=== PATIENT | female | born 1990 | race Caucasian/White ===

== ENCOUNTER 2020-01-31 07:29 | Observation (INO) | payer OTHER, SELFPAY ==
[2020-01-31] VITALS (24 sets, daily range): BP systolic 98–130; BP diastolic 61–90; PULSE 103–148; RESP 16–22; TEMP 36.3–37.3; O2SAT 95–100; BMI 31.1
--- NOTE | 2020-01-31 07:41 | W.ED.FEMALGU ---
HPI - Female Genitourinary General: Chief complaint: Urogenital-Female Stated complaint: ABD pain/Kidney Stone Related Time Seen by Provider: 01/31/20 07:36 History of Present Illness: HPI Narrative: Patient is a 29-year-old female comes to the ED with abdominal pain. History of tubal ligation, but denies any other surgeries in the abdomen and says she still has her appendix. pain started 2 days ago on Tuesday. Pain currently is a 10 out of 10 and it is located on both right and left lower abdomen. Endorses nausea but has not had any episodes of emesis. She also says she has decreased urine output and dysuria. Denies fever, chills, chest pain, shortness of breath, bowel symptoms. Associated symptoms: Reports abdominal pain and nausea; Deny headache(s) Review of Systems Const: Denies: fever(s), chills or fatigue Eyes: Denies: change in vision or eye discomfort ENMT: Denies: throat pain, odynophagia, nasal discharge or nasal congestion Card: Denies: chest pain, palpitations, edema, swelling of feet/ankles, dyspnea on exertion or orthopnea Resp: Denies: dyspnea, productive cough or non-productive cough GI: Reports: abdominal pain and nausea; Denies: vomiting, diarrhea, constipation or hematochezia : Reports: dysuria and oliguria; Denies: flank pain or hematuria Musc: Denies: neck pain, back pain or extremity swelling Skin/Breast: Denies: rash or new lesions Neuro: Denies: headache(s), numbness in extremities or weakness in extremities Physical Exam Const: COMMON NORMALS: patient oriented x3 and alert GENERAL APPEARANCE: cooperative and in distress (Patient appears uncomfortable and in pain.) HENMT: COMMON NORMALS: normocephalic HEAD & SCALP: normocephalic MOUTH: Normal oral and palatal mucosa present THROAT: posterior oropharynx normal and uvula midline Neck/C-Spine: COMMON NORMALS: supple GENERAL: Yes normal visual inspection Resp: COMMON NORMALS: normal respiratory effort, No retractions, No use of accessory muscles and clear to auscultation bilaterally AUSCULTATION: clear to auscultation bilaterally Cardio: COMMON NORMALS: regular rhythm, S1 normal heart sound present, S2 normal heart sound present, No gallops present (Cardio), No clicks present (Cardio), No murmurs present (Cardio) and Peripheral pulses 2+ throughout RATE: tachycardic (120-130 bpm range) RHYTHM: regular rhythm HEART SOUNDS: S1 normal heart sound present and S2 normal heart sound present PERIPHERAL PULSES: Peripheral pulses 2+ throughout GI: COMMON NORMALS: Normal to inspection, nondistended, normoactive bowel sounds present, Soft to palpation and no masses PALPATION: Yes Soft to palpation and Yes Tenderness to palpation present (GI) (Patient moderate tenderness in both right and left lower quadrants. [place]) Details: LLQ and RLQ (Positive McBurney's point with some peritoneal signs as well.) : COMMON NORMALS: Yes no CVA tenderness BLADDER/KIDNEY EXAM: Yes no CVA tenderness Back/Pelvis: COMMON NORMALS: no CVA tenderness Extremity: COMMON NORMALS: normal to inspection and no pedal edema Neuro: COMMON NORMALS: patient oriented x3 and moves all extremities SENSORIUM/ORIENTATION: Yes alert Skin: GENERAL SKIN EXAM: dry skin Course Reevaluation(s): Reevaluation #1: Patient says her pain has improved only with the 4 mg of morphine. She was given another 4 mg and had minimal improvement in pain as well. Patient was told about CT findings of appendicitis. She states that the last time she ate something was around 6 PM last night. Time: 10:01 Consultations: Consultation #1: Dr. Cadet-I told him about patient case and CT findings. He told me to have patient admitted to the floor instead of going straight to the OR. Vital Signs: Vital signs: Vital Signs Temperature 98.0 F 01/31/20 08:27 Pulse Rate 133 H 01/31/20 10:00 Respiratory Rate 17 01/31/20 13:05 Blood Pressure 116/85 01/31/20 13:05 Pulse Oximetry 97 01/31/20 13:05 MDM - Female MDM Narrative: Medical decision making narrative: Patient is a 29-year-old female comes to the ED with abdominal pain. She has moderate tenderness in the right lower quadrant positive McBurney sign with some peritoneal signs. White blood cell count 11.3. CT of the abdomen shows appendicitis with possible rupture. I contacted Dr. Cadet about patient case and findings and he wanted her admitted and will evaluate her up in the hospital floor for surgery today. I told Dr. Nia about patient and he will be placing the admitting orders. Patient was given Zosyn while here in the ED. Lab Data: Attestation: I reviewed the patient's lab results. Labs: Lab Results 01/31/20 01/31/20 01/31/20 Range/Units 08:10 08:10 08:10 WBC 11.3 H (4.0-10.0) 10^3/ uL RBC 4.75 (4.1-5.3) 10^6/u L Hgb 13.5 (11.5-15.3) g/dL Hct 41.0 (37.0-47.0) % MCV 86.3 (81-99) fL MCH 28.4 (28.0-34.0) pg MCHC 32.9 (30.0-36.0) g/dL RDW 12.5 (12.1-15.1) % Plt Count 193 (130-400) 10^3/c mm MPV 10.7 H (7.4-10.4) fL Neut % (Auto) 91.7 % Lymph % (Auto) 4.3 % [place] % (Auto) 3.4 % Eos % (Auto) 0.0 % Baso % (Auto) 0.3 % Neut # (Auto) 10.41 H (1.8-7.7) 10^3/u L Lymph # (Auto) 0.5 L (0.8-4.8) 10^3/u L [place] # (Auto) 0.4 (0.2-0.9) 10^3/u L Eos # (Auto) 0.0 (0.0-0.8) 10^3/u L Baso # (Auto) 0.0 (0.0-0.1) 10^3/u L Nucleated RBC % (a uto) 0 % Nucleated RBCs # 0.0 /100WBC Sodium 135 L (136-145) mmol/L Potassium 3.5 (3.5-5.1) mmol/L Chloride 99 (98-107) mmol/L Carbon Dioxide 20 L (22-29) mmol/L Anion Gap 19.5 H (5-19) BUN 12 (6-20) mg/dL Creatinine 0.6 (0.5-0.9) mg/dL GFR Calculation 119.9 (90-130) mL/min Glucose 121 H (65-115) mg/dL Calculated Osmolal ity 281 L (285-295) mOsm/k g Calcium 9.4 (8.5-10.5) mg/dL Total Bilirubin 0.6 (0.15-1.2) mg/dL AST 24 (0-32) U/L ALT 34 H (0-33) U/L Alkaline Phosphata se 93 (35-105) IU/L Total Protein 7.4 (6.6-8.7) g/dL Albumin 4.2 (3.5-5.2) g/dL Globulin 3.2 (1.3-4.6) g/dL Lipase 8 L (13-60) U/L HCG, Qual Negative (Negative) Urine Color (Yellow) Urine Appearance (CLEAR) Urine pH (5-7) Ur Specific [place] (1.005-1.030) Urine Protein (Negative) Urine Glucose (UA) (Normal) Urine Ketones (Negative) Urine Blood (Negative) Urine Nitrate (Negative) Urine Bilirubin (Negative) Urine Urobilinogen (Negative) mg/dL Ur Leukocyte [place] a[place] (Negative) Urine RBC (0-2) /hpf Urine WBC (0-5) /hpf Ur Squamous Epith Cells (0-5) /hpf Amorphous [place] Urine Bacteria (NONE) /hpf Urine Mucus /hpf 01/30/ Range/Units 08:10 WBC (4.0-10.0) 10^3/ uL RBC (4.1-5.3) 10^6/u L Hgb (11.5-15.3) g/dL Hct (37.0-47.0) % MCV (81-99) fL MCH (28.0-34.0) pg MCHC (30.0-36.0) g/dL RDW (12.1-15.1) % Plt Count (130-400) 10^3/c mm MPV (7.4-10.4) fL Neut % (Auto) % Lymph % (Auto) % [place] % (Auto) % Eos % (Auto) % Baso % (Auto) % Neut # (Auto) (1.8-7.7) 10^3/u L Lymph # (Auto) (0.8-4.8) 10^3/u L [place] # (Auto) (0.2-0.9) 10^3/u L Eos # (Auto) (0.0-0.8) 10^3/u L Baso # (Auto) (0.0-0.1) 10^3/u L Nucleated RBC % (a uto) % Nucleated RBCs # /100WBC Sodium (136-145) mmol/L Potassium (3.5-5.1) mmol/L Chloride (98-107) mmol/L Carbon Dioxide (22-29) mmol/L Anion Gap (5-19) BUN (6-20) mg/dL Creatinine (0.5-0.9) mg/dL GFR Calculation (90-130) mL/min Glucose (65-115) mg/dL Calculated Osmolal ity (285-295) mOsm/k g Calcium (8.5-10.5) mg/dL Total Bilirubin (0.15-1.2) mg/dL AST (0-32) U/L ALT (0-33) U/L Alkaline Phosphata se (35-105) IU/L Total Protein (6.6-8.7) g/dL Albumin (3.5-5.2) g/dL Globulin (1.3-4.6) g/dL Lipase (13-60) U/L HCG, Qual (Negative) Urine Color [place] (Yellow) Urine Appearance Sl hazy (CLEAR) Urine pH 5.0 (5-7) Ur Specific Gravit y 1.025 (1.005-1.030) Urine Protein 3+ H (Negative) Urine Glucose (UA) Norm (Normal) Urine Ketones 2+ H (Negative) Urine Blood Neg (Negative) Urine Nitrate Positive H (Negative) Urine Bilirubin 2+ H (Negative) Urine Urobilinogen 8 H (Negative) mg/dL Ur Leukocyte [place] a[place] Negative (Negative) Urine RBC 0-4 H (0-2) /hpf Urine WBC None (0-5) /hpf Ur Squamous Epith Cells 10-15 H (0-5) /hpf Amorphous Sediment Not Reportable Urine Bacteria 1+ H (NONE) /hpf Urine Mucus Trace /hpf Imaging Data: CT Abd/Pel: Attestation: I personally reviewed and interpreted this imaging study as follows: Radiologist's impression: [id number] [address] [address] Scan Report Signed Patient: Rani Millan Unit #: [id number] : 1990 Age/Sex: 29 / F ADM Date: 01/31/20 Loc: ER Room/Bed: Attending Dr: Ordering Provider/Ordering MD: Osorio Valentino Date of Service: 01/31/20 Procedure(s): CT abdomen pelvis w con* [id number] Accession Number(s): [id number] Report Number: [id number] WS: [id number] CT ABDOMEN AND PELVIS WITH CONTRAST HISTORY: abdominal pain-lower abdomen TECHNIQUE: Imaging performed of the abdomen and pelvis with IV contrast. Single phase imaging of the abdomen. Coronal and sagittal reformats are submitted. All CT scans at [facility] use at least one of these dose optimization techniques: automated exposure control; mA and/or kV adjustment per patient size (includes targeted exams where dose is matched to clinical indication); or iterative reconstruction. IV CONTRAST: Omnipaque 300; 95 mL IV. Oral contrast: No DLP: 948.4 mGy.cm COMPARISON: None available. Lower thorax: Lung bases are clear. Heart is normal size. No hiatal hernia. Liver/biliary system: Liver is normal size. 5 mm area of decreased attenuation near the RIGHT diaphragmatic surface. No bile duct dilatation. Gallbladder: Normal. No gallstones or wall thickening. No pericholecystic fluid. Pancreas: Normal. Spleen: Spleen is normal size. There are multiple scattered hypoechoic masses within the spleen. The largest measures 1.4 cm. There is very minimal peripheral enhancement within some of these nodules. Adrenal glands: Normal. Right kidney: No renal obstruction or mass. There is mild inflammation surrounding the distal ureter. Left kidney: Normal. Aorta: Normal. Lymphadenopathy: None. Free fluid: There is a small amount of free fluid in the cul-de-sac. Fluid surrounds the posterior uterus. There is also small amount of free fluid in the RIGHT abdomen along the ureter and adjacent to the cecum. GI tract: Dilated abnormal appendix measuring up to 11 mm. The appendix extends towards the midline and there is edema and a small amount of free fluid in the RIGHT lower quadrant. Mesenteric edema is noted. Abdominal wall: Unremarkable abdominal wall. No hernia. Pelvis: Small amount of free fluid in the pelvis. The uterus is midline. Bones: Unremarkable. CT/CT abdomen pelvis w con* [id number] IMPRESSION: 1. Findings of acute appendicitis with possible rupture. 2. Small amount of free fluid in the cul-de-sac with no abscess at this time. This additional mesenteric edema. 3. Multiple low-attenuation lesions within the spleen of uncertain etiology. Due to the multiplicity etiologies such as lymphoma, hemangiomas or lymphangiomas or microabscesses (correlate for bacteremia) should be considered. Dictated By: Fe Rico DO Signed By: Fe Rico DO Signed Date/Time: 01/31/2053 DD/ 6 Discharge Plan Discharge Prescriptions: No Action Tylenol Extra Strength 500 mg Tablet 1,000 mg PO PRN RF: 0 Coding Level of Care Code ED Route Service Representative for Chg Fwd Exam Comprehensive
--- NOTE | 2020-01-31 07:46 | CT_ITS ---
WS: [id number] CT ABDOMEN AND PELVIS WITH CONTRAST HISTORY: abdominal pain-lower abdomen TECHNIQUE: Imaging performed of the abdomen and pelvis with IV contrast. Single phase imaging of the abdomen. Coronal and sagittal reformats are submitted. All CT scans at [facility] use at least one of these dose optimization techniques: automated exposure control; mA and/or kV adjustment per patient size (includes targeted exams where dose is matched to clinical indication); or iterativ e reconstruction. IV CONTRAST: Omnipaque 300; 95 mL IV. Oral contrast: No DLP: 948.4 mGy.cm COMPARISON: None available. Lower thorax: Lung bases are clear. Heart is normal size. No hiatal hernia. Liver/biliary system: Liver is normal size. 5 mm area of decreased attenuation near the RIGHT diaphra gmatic surface. No bile duct dilatation. Gallbladder: Normal. No gallstones or wall thickening. No pericholecystic fluid. Pancreas: Normal. Spleen: Spleen is normal size. There are multiple scattered hypoechoic masses within the spleen. The largest measures 1.4 cm. There is very minimal peripheral enhancement within some of these nodules. Adrenal glands: Normal. Right kidney: No renal obstruction or mass. There is mild inflammation surrounding the distal ureter. Left kidney: Normal. Aorta: Normal. Lymphadenopathy: None. Free fluid: There is a small amount of free fluid in the cul-de-sac. Fluid surrounds the posterior ut erus. There is also small amount of free fluid in the RIGHT abdomen along the ureter and adjacent to the cecum. GI tract: Dilated abnormal appendix measuring up to 11 mm. The appendix extends towards the midline a nd there is edema and a small amount of free fluid in the RIGHT lower quadrant. Mesenteric edema is n oted. Abdominal wall: Unremarkable abdominal wall. No hernia. Pelvis: Small amount of free fluid in the pelvis. The uterus is midline. Bones: Unremarkable. CT/CT abdomen pelvis w con* [id number] IMPRESSION: 1. Findings of acute appendicitis with possible rupture. 2. Small amount of free fluid in the cul-de-sac with no abscess at this time. This additional mesenteric edema. 3. Multiple low-attenuation lesions within the spleen of uncertain etiology. D ue to the multiplicity etiologies such as lymphoma, hemangiomas or lymphangioma s or microabscesses (correlate for bacteremia) should be considered.
[2020-01-31] MEDS: morphine 4 mg/mL SDV 1 mL IVP ×2 (08:20→09:55)
[2020-01-31] MEDS: ondansetron 2 mg/ML SDV 2 mL 4 MG IVP (08:21)
[2020-01-31] MEDS: sodium chloride 0.9% 1,000 ML 999 ML IV (08:22)
[2020-01-31 08:32] LABS: Basophils % 0.3 %; Hemoglobin 13.5 g/dL (11.5-15.3); Lymphocytes # 0.5 10^3/uL (0.8-4.8); Lymphocytes % 4.3 %; Mean Corpuscular HGB Conc 32.9 g/dL (30.0-36.0); Mean Corpuscular Hemoglobin 28.4 pg (28.0-34.0); Mean Corpuscular Volume 86.3 fL (81-99); Mean Platelet Volume 10.7 fL (7.4-10.4); Monocytes # 0.4 10^3/uL (0.2-0.9); Monocytes % 3.4 %; Neutrophils # 10.41 10^3/uL (1.8-7.7); Neutrophils % 91.7 %; Nucleated Red Blood Cells % 0 %; Platelet Count 193 10^3/cmm (130-400); Red Blood Count 4.75 10^6/uL (4.1-5.3); Red Cell Distribution Width 12.5 % (12.1-15.1); White Blood Count 11.3 10^3/uL (4.0-10.0)
[2020-01-31 08:57] LABS: Alanine Aminotransferase 34 U/L (0-33); Albumin Level 4.2 g/dL (3.5-5.2); Alkaline Phosphatase 93 IU/L (35-105); Anion Gap 19.5 (5-19); Aspartate Amino Transferase 24 U/L (0-32); Blood Urea Nitrogen 12 mg/dL (6-20); Calcium 9.4 mg/dL (8.5-10.5); Carbon Dioxide 20 mmol/L (22-29); Chloride 99 mmol/L (98-107); Globulin 3.2 g/dL (1.3-4.6); Glomerular Filtration Rate 119.9 mL/min (90-130); Glucose 121 mg/dL (65-115); Lipase 8 U/L (13-60); Osmolality Calculated 281 mOsm/kg (285-295); Potassium 3.5 mmol/L (3.5-5.1); Sodium 135 mmol/L (136-145); Total Bilirubin 0.6 mg/dL (0.15-1.2); Total Protein 7.4 g/dL (6.6-8.7)
[2020-01-31 09:01] LABS: Bilirubin Urine 2+ (Negative); Blood Urine Neg (Negative); Glucose Urine UA Norm (Normal); HCG, Serum Qual Negative (Negative); Ketones Urine 2+ (Negative); Leukocyte Esterase Urine Negative (Negative); Nitrate Urine Positive (Negative); Protein Urine 3+ (Negative); Specific Gravity, Urine 1.025 (1.005-1.030); Urine Appearance SL Hazy (CLEAR); Urine Color Orange (Yellow); Urobilinogen Urine 8 mg/dL (Negative)
[2020-01-31 09:03] LABS: Add Urine Culture? No; Bacteria Urine 1+ /hpf; Mucus Urine TRACE /hpf; RBC Urine 0-4 /hpf (0-2)
[2020-01-31] MEDS: iohexol 300 mg/mL 100 mL Btl IV (09:28)
[2020-01-31] MEDS: piperacillin-tazobactam 3.375 GM in sodium chloride 0.9% (plus) 50 ML IV ×2 (10:44→22:08)
[2020-01-31] MEDS: HYDROmorphone 1 mg/mL INJ 1 mL IVP (12:11)
--- NOTE | 2020-01-31 13:10 | P.ANESASSM_ITS ---
Pre-Anesthetic Assessment Pre-Anesthetic Assessment: Height/Weight: Height 1.57 m Weight 77.111 kg Temp Pulse Resp BP Pulse Ox 98.0 F 133 H 17 116/85 97 01/31/20 08:27 01/31/20 10:00 01/31/20 13:05 01/31/20 13:05 01/31/20 13:05 Preop Diagnosis: appendicitis Proposed Procedure: Operation Date: 01/31/20 15:10 Proposed Procedures p Laparoscopic Appendectomy(Not Applicable) - Rodney Cadet MD Familial anesthetic complications: none Was Beta Jordon taken within 24 hours: N/A Last intake: NPO > 8 hrs Social: Social History: Tobacco and No alcohol Exam: Pre-Anes Outpt Exam: alert, oriented x 3, clear to auscultation bilaterally and regular rate & rhythm Airway: Cervical ROM: WNL MP: 2 Dentition: Full Anesthetic Plan: ASA status: 1 Anesthesia: General Risk of > 500 ml blood loss (7ml/kg in children): No Data Anesthesia CBC & Chem 7: 01/31/20 08:10 01/31/20 08:10 Other Labs: Laboratory Results - last 48 hr 01/31/20 01/31/20 01/31/20 08:10 08:10 08:10 WBC 11.3 H RBC 4.75 Hgb 13.5 Hct 41.0 MCV 86.3 MCH 28.4 MCHC 32.9 RDW 12.5 Plt Count 193 MPV 10.7 H Neut % (Auto) 91.7 Lymph % (Auto) 4.3 [place] % (Auto) 3.4 Eos % (Auto) 0.0 Baso % (Auto) 0.3 Neut # (Auto) 10.41 H Lymph # (Auto) 0.5 L [place] # (Auto) 0.4 Eos # (Auto) 0.0 Baso # (Auto) 0.0 Nucleated RBC % (auto) 0 Nucleated RBCs # 0.0 Sodium 135 L Potassium 3.5 Chloride 99 Carbon Dioxide 20 L Anion Gap 19.5 H BUN 12 Creatinine 0.6 GFR Calculation 119.9 Glucose 121 H Calculated Osmolality 281 L Calcium 9.4 Total Bilirubin 0.6 AST 24 ALT 34 H Alkaline Phosphatase 93 Total Protein 7.4 Albumin 4.2 Globulin 3.2 Lipase 8 L HCG, Qual Negative Urine Color Urine Appearance Urine pH Ur Specific [place] Urine Protein Urine Glucose (UA) Urine Ketones Urine Blood Urine Nitrate Urine Bilirubin Urine Urobilinogen Ur Leukocyte Esterase Urine RBC Urine WBC Ur Squamous Epith Cells Amorphous Sediment Urine Bacteria Urine Mucus 01/31/20 08:10 WBC RBC Hgb Hct MCV MCH MCHC RDW Plt Count MPV Neut % (Auto) Lymph % (Auto) [place] % (Auto) Eos % (Auto) Baso % (Auto) Neut # (Auto) Lymph # (Auto) [place] # (Auto) Eos # (Auto) Baso # (Auto) Nucleated RBC % (auto) Nucleated RBCs # Sodium Potassium Chloride Carbon Dioxide Anion Gap BUN Creatinine GFR Calculation Glucose Calculated Osmolality Calcium Total Bilirubin AST ALT Alkaline Phosphatase Total Protein Albumin Globulin Lipase HCG, Qual Urine Color [place] Urine Appearance Sl hazy Urine pH 5.0 Ur Specific [place] 1.025 Urine Protein 3+ H Urine Glucose (UA) Norm Urine Ketones 2+ H Urine Blood Neg Urine Nitrate Positive H Urine Bilirubin 2+ H Urine Urobilinogen 8 H Ur Leukocyte Esterase Negative Urine RBC 0-4 H Urine WBC None Ur Squamous Epith Cells 10-15 H Amorphous Sediment Not Reportable Urine Bacteria 1+ H Urine Mucus Trace Micro: Microbiology 01/31/20 08:10 Blood Culture - Preliminary Blood SPECIMEN COLLECTED Cardiac Studies: No Data to Display
--- NOTE | 2020-01-31 14:09 | PM.HP ---
Providers/Chief Complaint Admitting Physician: General Surgery Rodney Cadet MD Primary Care Provider: CASSIEMahesh DONATO Chief Complaint: ABD pain/Kidney Stone Related History of Present Illness Rani Millan is a 29 year old female who started developing in upper abdominal pain, particularly on the left side 2 days ago. She initially thought she may be dealing with a kidney stone, although she has no history of the same. The pain has slowly moved down her abdomen and into the right lower quadrant. This has been associated with more intense pain, nausea without vomiting, no change in bowel habits, perhaps a few chills and some anorexia. She came to the emergency room today and a CAT scan showed changes consistent with acute appendicitis with free fluid in the pelvis, possibly consistent with early rupture. Review of Systems General: Reports: 10 or more systems reviewed and unremarkable except in HPI and below Const: Reports: chills Resp: Denies: dyspnea GI: Reports: abdominal pain and nausea; Denies: vomiting or change in bowel habits : Reports: difficulty voiding (Yesterday, but better today) Medications/Allergies Home Medications Medication Instructions Recorded Confirmed Last Taken Type acetaminophen [Tylenol Extra 1,000 mg PO PRN 01/31/20 01/31/20 01/30/20 History Strength] Allergies Allergy/AdvReac Type Severity Reaction Status Date / Time No Known Allergies Allergy Verified 01/31/20 09:19 PFSH Acute PFSH: Medical History No significant past medical history Surgical History History of oral surgery [place] teeth History of tubal ligation Social History (Updated 01/31/20 @ 14:16 by Rodney Cadet MD) Smoking and tobacco status: current every day smoker cigarettes Packs smoked per day: 0.25 Years cigarettes smoked: 10 Alcohol intake: current Alcohol use comment: Occasional Vitals/I&O/Wt Last Vital Signs Temp 98.0 F 01/31/20 08:27 Pulse 133 H 01/31/20 10:00 Resp 17 01/31/20 13:05 BP 116/85 01/31/20 13:05 Pulse Ox 97 01/31/20 13:05 Weight last 48 hrs Weight 170 lb Physical Exam Narrative: EXAM NARRATIVE: The patient was encountered in the emergency department. She does not appear to be in any acute distress. The pupils are equal. No carotid bruits are heard. The lungs are clear anteriorly. The heart is regular but is slightly tachycardic. The abdomen reveals hypoactive bowel sounds but is soft. Rovsing's sign is positive. The patient has her maximum point of tenderness over McBurney's point in the right lower quadrant or slightly medial to this. No obvious masses are palpated. The extremities reveal no edema. Neurologically the patient appears to be grossly intact Data : 01/31/20 08:10 01/31/20 08:10 Micro: Microbiology 01/31/20 08:10 Blood Culture - Preliminary Blood SPECIMEN COLLECTED CT Abd/Pel: Radiologist's impression: CT abdomen/pelvis 01/31/2020 IMPRESSION: 1. Findings of acute appendicitis with possible rupture. 2. Small amount of free fluid in the cul-de-sac with no abscess at this time. This additional mesenteric edema. 3. Multiple low-attenuation lesions within the spleen of uncertain etiology. Due to the multiplicity etiologies such as lymphoma, hemangiomas or lymphangiomas or microabscesses (correlate for bacteremia) should be considered. A&P Assessment and plan (1) Acute appendicitis: I agree with the assessment on the CT regarding acute appendicitis. The patient does have a mild to moderate amount of free fluid in the pelvis which may or may not be secondary to rupture; this may just be secondary to inflammatory change. I discussed appendicitis with the patient in some detail. Both conservative and surgical methods of management were discussed. Risks of surgery including bleeding, infection, internal organ injury, etc. were all gone over. The patient seems to understand and would like to proceed with an appendectomy today. The patient has been n.p.o. since last night. We will make arrangements for a laparoscopic or possibly open appendectomy today. Status: Acute Attestations Medical Necessity Statement*: Based on my medical assessment, presenting symptoms and consideration of the scope of surgical therapy, I expect this patient will require treatment in the hospital for a period of time spanning less than 2 midnights, and is therefore being placed in observation status. Coding Level of Care Code Acute Mule Packer for [facility] Diagnoses Acute appendicitis K35.80
[2020-01-31] MEDS: sodium chloride 0.9% 1,000 ML 30 ML IV (16:09)
[2020-01-31] MEDS: metroNIDAZOLE IV 500 MG/100 ML PREMIX 100 MG IV (16:18)
--- NOTE | 2020-01-31 17:50 | PC.NURSE ---
Received patient from surgery via stretcher, patient able to transfer by herself to bed, denies pain or nausea, X3 incisions to anterior abdomen, dressings clean dry and intact, SCD's and TEDs to lower extremities bilaterally, patient oriented but drowsy, vitals stable as documented.
--- NOTE | 2020-01-31 18:10 | SUR.PHASEI ---
[id number] PT TO FLOOR AWAKE ALERT MOVES SELF TO BED WITHOUT ASSIST, ALERT TALKATIVE ABD SOFT HANDOFF AT BEDSIDE
--- NOTE | 2020-01-31 18:24 | P.OP_ITS ---
Operative Report Date of procedure: January 31, 2020 Pre-op Diagnosis: Acute appendicitis with possible perforation. Post-op Diagnosis: Perforated appendicitis. Procedure Done: Laparoscopic appendectomy. Specimens removed/disposition: Appendix. Surgeon: Rodney Cadet Anesthesia: General Estimated blood loss (mL): 10 Complications: None. Disposition: PACU Procedure: The patient was brought to the Operating Room and was placed in a supine position on the operating room table. General endotracheal anesthesia was induced. The abdomen was prepped and draped in a sterile fashion. A small vertical incision was carried out in the superior aspect of the umbilicus. Blunt dissection was carried out down to the fascia, which was grasped with a Akshat clamp. A stay suture of 0 Vicryl was placed on either side of the midline and the midline fascia was incised. The underlying peritoneum was opened bluntly and the Aubrey port was placed directly into the peritoneal cavity and was held in place with the inflatable balloon. The peritoneal cavity was insufflated with carbon dioxide. The laparoscope was used to inspect the peritoneal cavity. The patient had some cloudy fluid along the right gutter and into the pelvis. There was evidence of early inflammatory peel on the loops of small bowel in the right lower quadrant in the pelvis. Two 5-millimeter ports were placed in the left lower quadrant under direct vision. The patient was tilted in a Trendelenburg position and slightly to the left side. A laparoscopic [place] was used to elevate the cecum and the appendix was eventually identified in the middle of an early phlegmon involving the distal small bowel loops. The bowel loops were carefully but easily freed from each other bluntly and any of the light inflammatory peel that was loosened in the process was suctioned out. The appendix was further freed using blunt dissection and was then elevated. It could be seen that the patient had a small perforation of the appendix just beyond the base where a small fecalith was present and was suctioned out. No jamison abscess was ever seen, however. It appeared as if the small bowel loops had done a good job of containing the perforation and most of the fluid in the pelvis was more inflammatory but I am sure contained some microorganisms. The mesoappendix was divided using cautery to maintain hemostasis at the base of the appendix. The base of the appendix appeared relatively healthy and was divided using an endoscopic stapler. The appendix was removed from the peritoneal cavity after being placed in a laparoscopic bag. Given the friability of the tissue at the cecum, an Endoloop suture of 0 Vicryl was also placed on the appendiceal base right at the junction of the cecum. The right lower quadrant and pelvis were extensively irrigated with multiple liters of sterile saline until the return was clear. Some irrigation was even carried out in the upper quadrants, but no cloudy fluid was discovered there. The staple line on the appendiceal stump and Endoloop suture at the cecum were once again identified and appeared to be in good position/condition. The Aubrey port was removed from the umbilical site and the stay sutures of Vicryl were tied to each other at the umbilicus. An additional [id number] suture of 0 Vicryl was placed, closing the fascial defect so that it was airtight. A final round of irrigation was carried out in the right lower quadrant and the pelvis. No ongoing problems were seen. The remaining ports were removed from the abdominal wall as the pneumoperitoneum was evacuated. All skin incisions were closed using inverted interrupted sutures of 4-0 Vicryl. Benzoin and Steri-Strips were placed over the incisions and Band- Aids followed. The patient was taken to the Recovery Room in stable condition postoperatively.
[2020-01-31] MEDS: D5-NS 0.45% + KCL 20 mEq 20 MEQ/1,000 ML BAG 100 MEQ IV (18:28)
--- NOTE | 2020-01-31 19:04 | ANE.PACU2 ---
Inpatient post-anesthesia follow up: Airway intact: Yes Vital signs: Temperature 98.2 F Pulse Rate [Monito r] 134 Pulse Rate 110 Respiratory Rate 16 Blood Pressure [Ri ght Arm] 106/75 Blood Pressure 105/66 Pulse Oximetry 96 Oxygen Delivery Me thod Nasal Cannula Oxygen Flow Rate 2 Fraction of Inspir ed Oxygen Hydration adequate: Yes Nausea and vomiting: No Pain level: 3 Mental status: Baseline
[2020-01-31] MEDS: levalbuterol 0.63 mg/3 mL Neb INHALATION (21:10)
[2020-01-31] MEDS: ketorolac 30 mg/mL INJ 15 MG IVP (21:16)
[2020-01-31] MEDS: heparin 5,000 unit/mL INJ 1 mL 5000 UNIT SUBCUT (21:28)
[2020-02-01 00:50] VITALS: BP 93/62; PULSE 89; RESP 16; O2SAT 93
[2020-02-01] MEDS: famotidine 20 mg/2 mL INJ IVP ×2 (03:26→15:35)
[2020-02-01] MEDS: ketorolac 30 mg/mL INJ 15 MG IVP (03:27)
[2020-02-01] MEDS: D5-NS 0.45% + KCL 20 mEq 20 MEQ/1,000 ML BAG 100 MEQ IV (04:49)
[2020-02-01] MEDS: piperacillin-tazobactam 3.375 GM in sodium chloride 0.9% (plus) 50 ML IV ×2 (04:50→11:49)
[2020-02-01 05:17] LABS: Basophils % 0.1 %; Hematocrit 30.6 % (37.0-47.0); Hemoglobin 9.8 g/dL (11.5-15.3); Lymphocytes # 0.4 10^3/uL (0.8-4.8); Lymphocytes % 4.6 %; Mean Corpuscular Hemoglobin 28.2 pg (28.0-34.0); Mean Corpuscular Volume 88.2 fL (81-99); Monocytes # 0.4 10^3/uL (0.2-0.9); Monocytes % 5.3 %; Neutrophils # 6.72 10^3/uL (1.8-7.7); Neutrophils % 88.7 %; Nucleated Red Blood Cells % 0 %; Platelet Count 163 10^3/cmm (130-400); Red Blood Count 3.47 10^6/uL (4.1-5.3); Red Cell Distribution Width 12.6 % (12.1-15.1); White Blood Count 7.6 10^3/uL (4.0-10.0)
[2020-02-01 05:56] LABS: Anion Gap 11.6 (5-19); Blood Urea Nitrogen 10 mg/dL (6-20); Calcium 8.7 mg/dL (8.5-10.5); Carbon Dioxide 22 mmol/L (22-29); Chloride 107 mmol/L (98-107); Glomerular Filtration Rate 119.9 mL/min (90-130); Glucose 136 mg/dL (65-115); Osmolality Calculated 285 mOsm/kg (285-295); Potassium 3.6 mmol/L (3.5-5.1); Sodium 137 mmol/L (136-145)
--- NOTE | 2020-02-01 07:04 | PM.PN ---
Subjective Subjective: Interval history: The patient says she already feels much better today. She says she is getting up to urinate frequently; it sounds like she is now very well-hydrated. She is fairly adamant that she wants to try to get out of here at some point in time and recuperate at home. Vitals/I&O/Wt Last Vital Signs Temp 98.2 F 01/31/20 19:50 Pulse 89 02/01/20 00:50 Resp 16 02/01/20 00:50 BP 93/62 02/01/20 00:50 Pulse Ox 93 02/01/20 00:50 01/31/20 02/01/20 02/01/20 22:59 06:59 14:59 Intake Total 1360 / 2410 1050 / 2410 Output Total 120 / 520 400 / 520 Balance 1240 / 1890 650 / 1890 Weight last 48 hrs Weight 170 lb Physical Exam Narrative: EXAM NARRATIVE: Bowel sounds are hypoactive. The surgical incisions look good. Data : 02/01/20 05:05 02/01/20 05:05 Micro: Microbiology 01/31/20 08:10 Blood Culture - Preliminary Blood SPECIMEN COLLECTED A&P Assessment and plan (1) Perforated appendicitis: Status post appendectomy on 01/31/2020. The patient was found to have a perforation in the appendix with some fluid in the pelvis. She continues on broad-spectrum antibiotics. The patient's hemoglobin has drifted somewhat. While a lot of this may be delusional, I am going to discontinue her Toradol and heparin for now and continue to watch her hemoglobin. She very much wants to go home today. We discussed the benefit of her staying in the hospital for further intravenous antibiotics. Her white blood cell count is surprisingly already back to normal and she has remained afebrile. I told her that if she really wants to go home we may be clinically cutting a corner, but those 2 indicators are obviously very good signs that she is going to do well. I have talked her into waiting until just after noon when she will get her next dose of Zosyn and then her gets off work a couple hours later here in town. If nothing comes up in the interim, I will make arrangements for her to go home later today on oral antibiotics. Status: Acute Attestations Medical Necessity Statement*: The patient will be left in observation status, as she will likely be discharged later today. Coding Level of Care Code Acute Sheet Catcher for [facility] Fwd Diagnoses Perforated appendicitis K35.32
--- NOTE | 2020-02-01 07:29 | PC.NURSE ---
Dr. Cadet in to see patient, discussed plan of care to discharge home this afternoon after IV antibiotic scheduled administration. Patient in agreement, denies further questions or concerns.
[2020-02-01 08:00] VITALS: BP 111/74; PULSE 95; RESP 16; TEMP 37; O2SAT 98
[2020-02-01 08:38] VITALS: PULSE 103; RESP 16; O2SAT 98
[2020-02-01] MEDS: levalbuterol 0.63 mg/3 mL Neb INHALATION (08:38)
[2020-02-01 08:40] VITALS: PULSE 108
[2020-02-01] MEDS: HYDROcodone-acetaminophen 5-325 mg Tablet PO ×2 (09:00→15:03)
--- NOTE | 2020-02-01 09:00 | PC.NURSE ---
PRN norco given for a pain level of 5 on 0-10 pain scale, see MAR for further details.
--- NOTE | 2020-02-01 09:23 | P.DS_ITS ---
Discharge Providers Date of Admission: 01/31/20 17:15 Date of Discharge: February 01, 2020 Attending Provider at Admission: Rodney Cadet MD Attending Provider at Discharge: Rodney Cadet MD Primary Care Provider: [facility] Diagnoses at Discharge Discharge Diagnosis (1) Perforated appendicitis: Status: Acute Reason for Visit Reason for Visit: ABD pain/Kidney Stone Related Hospital Course Hospital Course This is a 29-year-old white female who developed abdominal pain 2 days before presenting to the local emergency room where a CAT scan revealed evidence of acute appendicitis with probable perforation. She was taken to the operating room for laparoscopy and was found to have a perforated appendicitis but no jamison abscess was found. All of the fluid seen on the CAT scan turned out to be cloudy fluid in the pelvis which was extensively irrigated out. By the following morning she was already feeling much better. Her white blood cell count had returned to normal and she remained afebrile. I had intended to leave her in the hospital for several days on intravenous antibiotics but she was fairly adamant about wanting to go home. We discussed possible risks. She elected to go home on oral antibiotics. She was instructed with respect to wound care, activity limitations, diet, etc. I made her aware that I will be available at any time even over the weekend if she has any concerns. Otherwise, a follow-up appointment will be made for her to see me in the office as an outpatient. Physical Exam Narrative: EXAM NARRATIVE: At the time of discharge the patient's bowel sounds remain hypoactive but her wounds all appear to be healing very well. Her tachycardia had essentially resolved and her white blood cell count was normal. Discharge Data Data Completed and Pending: Completed Studies During Hospitalization Category Date Time Status CT abdomen pelvis w con* [id number] Urge nt Cat Scan 01/31/20 07:46 Completed Pending at discharge Category Date Time Status ES surgery / GI i mages Routine Exams 01/31/20 15:53 Ordered Blood Culture Sta t Lab 01/31/20 08:10 Results Pathology: Surgic al [PTH] Routine Pth 01/31/20 17:01 Received Labs from last 24 hours 02/01/20 02/01/20 05:05 05:05 WBC 7.6 RBC 3.47 L Hgb 9.8 L Hct 30.6 L MCV 88.2 MCH 28.2 MCHC 32.0 RDW 12.6 Plt Count 163 MPV 11.0 H Neut % (Auto) 88.7 Lymph % (Auto) 4.6 [place] % (Auto) 5.3 Eos % (Auto) 0.0 Baso % (Auto) 0.1 Neut # (Auto) 6.72 Lymph # (Auto) 0.4 L [place] # (Auto) 0.4 Eos # (Auto) 0.0 Baso # (Auto) 0.0 Nucleated RBC % (a uto) 0 Nucleated RBCs # 0.0 Sodium 137 Potassium 3.6 Chloride 107 Carbon Dioxide 22 Anion Gap 11.6 BUN 10 Creatinine 0.6 GFR Calculation 119.9 Glucose 136 H Calculated Osmolal ity 285 Calcium 8.7 Vitals: Last Vital Signs Temp 98.6 F 02/01/20 08:00 Pulse 108 H 02/01/20 08:40 Resp 16 02/01/20 08:38 BP 111/74 02/01/20 08:00 Pulse Ox 98 02/01/20 08:38 Discharge Plan Discharge Patient Disposition: Home Condition: Stable Prescriptions: New hydrocodone-acetaminophen 5-325 mg tablet 1 - 2 tab PO Q5H PRN (Reason: pain) Qty: 30 RF: 0 Augmentin 875-125 mg tablet 1 tab PO BID Qty: 15 RF: 0 Discontinued acetaminophen [Tylenol Extra Strength] 500 mg Tablet 1,000 mg PO PRN RF: 0 Discharge Orders: Discharge Order (Routine); Ordered 02/01/20 Ordered By: Rodney Cadet Referrals: Rodney Cadet MD [Physician] - 02/12/20 3:00 pm () Discharge Diet: Advance as tolerated Discharge Activity: Limit activity as instructed Patient Instructions: Hydrocodone/Acetaminophen (By mouth), Am oxicillin/Clavulanate Potassium (By mouth), Laparoscopic Appendectomy (DC) Activity Restrictions/Additional Instructions: 1. Discharge to home today after 12:30 dose of Zosyn. 2. Appointment to see Dr. Cadet in 10-14 days as above. 3. Bandaids off later today, leave Steri-Strip(s) on, may shower. 4. [place] 5/325 1-2 tablets by mouth every 5 hours as needed for pain. #30, no refills. 5. Augmentin 875/125 1 tablet by mouth. twice daily until gone. Dispense #15, no refills. No lifting over 20 pounds, no repetitive bending or twisting, no strenuous pushing / pulling or other heavy activity. Ambulate regularly. May go up and down steps if needed. Discharge Attestations Time Spent in Discharge Care*: less than 30 min Quality Metrics Clinical Quality Measures During this hospital stay, did patient experience: None Coding Level of Care Code Acute Industrial Illuminating Engineer for [facility] Fwd Diagnoses Perforated appendicitis K35.32
--- NOTE | 2020-02-01 09:26 | ANE.PACU2 ---
Inpatient post-anesthesia follow up: Airway intact: Yes Vital signs: Temperature 98.6 F Pulse Rate [Monito r] 134 Pulse Rate 108 Respiratory Rate 16 Blood Pressure [Ri ght Arm] 106/75 Blood Pressure 111/74 Pulse Oximetry 98 Oxygen Delivery Me thod Room Air Oxygen Flow Rate 0 Fraction of Inspir ed Oxygen Hydration adequate: Yes Nausea and vomiting: No Pain level: 2 Mental status: Baseline
--- NOTE | 2020-02-01 11:05 | PC.CHAP ---
Pastoral Care Encounter/Spiritual Assessment Type of Contact [] Declined minister assistant visit [] Patient/Family/Request visit [] Outpatient visit [] Follow-up visit [] Physician referral [] Code/Alert [] Routine visit [] Staff referral [] Actively dying [xx] Patient sleeping [] Family support [] [] Out of room [] Palliative care [] [] Receiving care in room [] Pre-surgical visit [] Trauma [] Long length of stay [] ICU visit [xx] Other: Pt needs follow up. Relational/Emotional Strength [] Patient feels connected with others/family/visitors/staff [] Distress [] Loneliness/isolation [] Abandonment Spirituality of Patient [] Person of Rocio [] Attends Confucianist of their Rocio [] Believes in Prayer [] Reads Bible or Muslim materials [] There are Spiritual issues to be addressed Producer Assistant Interventions [] Prayer [] Active listening [] Non-anxious presence [] Spiritual/emotional support [] Crisis/trauma care [] Spiritual counseling [] Bereavement support [] Provided bereavement packet [] Provided Bible/devotional materials [] Provided toy/stuffed animal, coloring book to patient or family member [] Provided Communion [] Anointing/[place] [] Salvation [] Completed spiritual assessment [] Other: Impact on Illness or Injury [] Angry [] Fearful [] Anxious [] Often cries [] Exhaustion [] Unable to work [] Unable to attend baptist [] Unable to walk/stand [] Unable to read [] Unable to drive [] Unable to eat/drink [] Unable to sleep [] Unable to be with family [] Patient intubated [] Other: Summary Time spent with patient
[2020-02-01 14:02] VITALS: BP 110/72; PULSE 105; RESP 18; TEMP 37.5; O2SAT 96
--- NOTE | 2020-02-01 14:08 | PC.NURSE ---
Resting in bed, equal rise and fall of chest, call light in reach.
--- NOTE | 2020-02-01 15:09 | PC.NURSE ---
discharge instructions provided, verbalized understanding, denies further questions or concerns, bandaids removed per doctors orders, steri strips in place.
[2020-02-01 16:29] VITALS: BP 110/72; PULSE 105; RESP 18; TEMP 37.5; O2SAT 96
--- NOTE | 2020-02-05 14:39 | PC.RESP ---
SMOKING CESSATION INFORMATION SENT TO PATIENT.
== END 2020-02-01 16:29 | disposition home or self-care (01) ==
LOC: ER 12:45 → OR 15:11 → MEDSURG 17:16
PROVIDERS: Admitting Provider Surgery; Emergency Provider Physician Assistant; Visit Provider Surgery
PROC: 0DTJ4ZZ Resection of Appendix, Percutaneous Endoscopic Approach (ICD-10-PCS; CPT 44970; principal; 2020-01-31 15:10)
DX: K35.891 Other acute appendicitis without perforation, with gangrene (principal); F17.210 Nicotine dependence, cigarettes, uncomplicated
CPT/HCPCS: 44970; 12345; 74177; 80048; 80053; 81001; 83690; 84703; 85025; 87040; 88304; 94640; 96361; 96365; 96366; 96367; 96372; 96375; 96376; 99282; 99285; G0378; J0131; J0690; J1100; J1170; J1644; J1885; J2250; J2270; J2405; J2543; J2704; J2710; J2765; J3010; J3490; J7030; J7614; Q9967; S0030

== ENCOUNTER 2020-02-02 16:18 | Inpatient (IN) | payer OTHER, SELFPAY ==
--- NOTE | 2020-02-02 17:03 | PM.PN ---
Subjective Subjective: Interval history: INTERVAL NOTE: This is a 29-year-old white female who underwent a laparoscopic appendectomy 2 days ago for perforated appendicitis. She was discharged yesterday. I had encouraged her to stay in the hospital for more intravenous antibiotics beyond yesterday morning even though her white blood cell count was normal and she had remained afebrile overnight. She still elected to go home. She was discharged on some Augmentin and was instructed to call me if she had any problems. She apparently did well yesterday, but did not obtain the Augmentin until this morning. This morning she had some diarrhea and developed some nausea and vomiting. There was no evidence of hematemesis. During the vomiting she had apparently pulled a muscle in the right side of her back and she says it is very sore. She took her Augmentin this morning for the first time but has been unable to keep anything down since. I told her to come back to the hospital for observation/hydration, antibiotics, etc. Physical Exam Narrative: EXAM NARRATIVE: The patient has just arrived on the floor. She was encountered in the waiting area and subsequently in her hospital room. The pupils are equal. The lungs reveal a few scattered rales that cleared with inspiration. The heart is regular. The abdomen reveals very few bowel sounds. The incisions are healing very well. She has no significant tenderness in the abdomen with the exception of the upper abdomen on the right side around the costal margin where she pulled a muscle towards the back. The extremities reveal no edema. Neurologically the patient is grossly intact. A&P Assessment and plan (1) Nausea vomiting and diarrhea: The patient had a perforated appendicitis just 2 days ago. I had encouraged her to stay in the hospital for a longer course of intravenous antibiotics, but after insisting on going home, she apparently she did okay until today when she started having nausea and vomiting. She did have a loose bowel movement this morning. To make things worse, she pulled a muscle in her back while she was vomiting and that almost seems to be her biggest issue currently. She is also in tears because she does not like staying alone and because of the Covid pandemic, she cannot have constant visitors. Given the fact that she is unable to keep oral antibiotics down, however, I think it is best that she stays in the hospital for intravenous antibiotics/hydration until she improves. I will start the patient back on Zosyn. Check laboratory studies this evening. Clear liquid diet. Pain and nausea medication as needed. Status: Acute Attestations Medical Necessity Statement*: Based on my medical assessment, presenting symptoms and consideration of the scope of surgical therapy, I expect this patient will require treatment in the hospital for a period of time spanning less than 2 midnights, and is therefore being placed in observation status. Coding Level of Care Code Acute Wrapper Off for [facility] Fwd Diagnoses Nausea vomiting and diarrhea R11.2; R19.7
[2020-02-02 18:16] VITALS: BP 122/79; PULSE 123; RESP 19; TEMP 38.6; O2SAT 95
[2020-02-02] MEDS: ketorolac 30 mg/mL INJ 15 MG IVP (19:59)
[2020-02-02 20:00] VITALS: BP 124/84; PULSE 117; RESP 18; TEMP 37.4; O2SAT 94
[2020-02-02] MEDS: famotidine 20 mg/2 mL INJ IVP (20:00)
[2020-02-02] MEDS: D5-NS 0.45% + KCL 20 mEq 20 MEQ/1,000 ML BAG 125 MEQ IV (20:03)
[2020-02-02 20:06] LABS: Anion Gap 16.6 (5-19); Blood Urea Nitrogen 9 mg/dL (6-20); Calcium 9.4 mg/dL (8.5-10.5); Carbon Dioxide 24 mmol/L (22-29); Chloride 98 mmol/L (98-107); Glucose 93 mg/dL (65-115); Osmolality Calculated 280 mOsm/kg (285-295); Sodium 136 mmol/L (136-145)
[2020-02-02 20:23] LABS: Basophils % 0.4 %; Eosinophils % 0.4 %; Hematocrit 37.3 % (37.0-47.0); Lymphocytes # 0.7 10^3/uL (0.8-4.8); Lymphocytes % 8.6 %; Mean Corpuscular HGB Conc 32.2 g/dL (30.0-36.0); Mean Corpuscular Hemoglobin 28.3 pg (28.0-34.0); Mean Platelet Volume 11.2 fL (7.4-10.4); Monocytes # 0.4 10^3/uL (0.2-0.9); Monocytes % 5.8 %; Neutrophils # 6.34 10^3/uL (1.8-7.7); Neutrophils % 84.1 %; Nucleated Red Blood Cells % 0 %; Platelet Count 219 10^3/cmm (130-400); Red Blood Count 4.24 10^6/uL (4.1-5.3); White Blood Count 7.5 10^3/uL (4.0-10.0)
[2020-02-02 20:34] LABS: Potassium 2.6 mmol/L (3.5-5.1)
[2020-02-02] MEDS: piperacillin-tazobactam 3.375 GM in sodium chloride 0.9% (plus) 50 ML IV (21:51)
[2020-02-03] VITALS (7 sets, daily range): BP systolic 117–128; BP diastolic 78–84; PULSE 107–122; RESP 16–24; TEMP 37–37.6; O2SAT 92–94
[2020-02-03] MEDS: ketorolac 30 mg/mL INJ 15 MG IVP ×4 (02:35→18:14)
[2020-02-03] MEDS: D5-NS 0.45% + KCL 20 mEq 20 MEQ/1,000 ML BAG 125 MEQ IV (03:11)
[2020-02-03 05:50] LABS: Basophils % 0.2 %; Eosinophils # 0.1 10^3/uL (0.0-0.8); Eosinophils % 1.4 %; Hematocrit 30.5 % (37.0-47.0); Hemoglobin 9.8 g/dL (11.5-15.3); Lymphocytes # 0.5 10^3/uL (0.8-4.8); Lymphocytes % 8.7 %; Mean Corpuscular HGB Conc 32.1 g/dL (30.0-36.0); Mean Corpuscular Hemoglobin 28.5 pg (28.0-34.0); Mean Corpuscular Volume 88.7 fL (81-99); Mean Platelet Volume 10.7 fL (7.4-10.4); Monocytes # 0.4 10^3/uL (0.2-0.9); Neutrophils # 4.71 10^3/uL (1.8-7.7); Neutrophils % 82.4 %; Nucleated Red Blood Cells % 0 %; Platelet Count 188 10^3/cmm (130-400); Red Blood Count 3.44 10^6/uL (4.1-5.3); Red Cell Distribution Width 13.1 % (12.1-15.1); White Blood Count 5.7 10^3/uL (4.0-10.0)
[2020-02-03 06:16] LABS: Anion Gap 12.7 (5-19); Blood Urea Nitrogen 9 mg/dL (6-20); Calcium 8.6 mg/dL (8.5-10.5); Carbon Dioxide 25 mmol/L (22-29); Chloride 101 mmol/L (98-107); Glucose 113 mg/dL (65-115); Osmolality Calculated 281 mOsm/kg (285-295); Sodium 136 mmol/L (136-145)
[2020-02-03] MEDS: piperacillin-tazobactam 3.375 GM in sodium chloride 0.9% (plus) 50 ML IV ×3 (06:42→18:14)
[2020-02-03 06:44] LABS: Potassium 2.7 mmol/L (3.5-5.1)
[2020-02-03] MEDS: famotidine 20 mg/2 mL INJ IVP ×2 (06:45→18:13)
[2020-02-03] MEDS: lidocaine 1% 5 ML in potassium chloride premix 100 ML 25 ML IV (08:09)
--- NOTE | 2020-02-03 09:35 | PM.PN ---
Subjective Subjective: Interval history: The patient is feeling better today. She no longer has pain on the right side of her back, but says now she has some on the left side. It only bothers her when she is up moving around. She is passing flatus and tolerating clear liquids without nausea. She is not having any more diarrhea. Vitals/I&O/Wt Last Vital Signs Temp 98.6 F 02/03/20 07:47 Pulse 107 H 02/03/20 07:47 Resp 18 02/03/20 07:47 BP 117/81 02/03/20 07:47 Pulse Ox 93 02/03/20 07:47 02/02/20 02/03/20 02/03/20 22:59 06:59 14:59 Intake Total 120 / 1798.569 4710.667 / 1241.667 Output Total 100 / 100 Balance 120 / 0646.392 7733.667 / 1141.667 Weight last 48 hrs Weight 171 lb 9.6 oz Physical Exam Narrative: EXAM NARRATIVE: Bowel sounds are improved. The incisions still look good. Data : 02/03/20 05:06 02/03/20 05:06 A&P Assessment and plan (1) Nausea vomiting and diarrhea: The patient is doing better. Change to inpatient status. Replace potassium; her potassium was low last night, as well, but nursing did not notify me at that time. Advance diet as tolerated. Plan discharge tomorrow if the patient continues doing well. Status: Acute Attestations Medical Necessity Statement*: I am going to watch the patient one more day in the hospital. Since tonight will be her second midnight in the hospital, I will change her to inpatient status for ongoing intravenous antibiotics following perforated appendicitis. Coding Level of Care Code Acute Supervisor Contact And Service Clerks for [facility] Fwd Diagnoses Nausea vomiting and diarrhea R11.2; R19.7
[2020-02-03] MEDS: dextrose 5%-ns 0.45% + KCl 40 1,000 ML 100 MEQ IV ×2 (11:25→18:21)
[2020-02-03] MEDS: ondansetron 2 mg/ML SDV 2 mL 4 MG IVP ×2 (11:26→23:29)
[2020-02-03] MEDS: morphine 4 mg/mL SDV 1 mL IVP ×2 (16:22→23:30)
[2020-02-04] VITALS (7 sets, daily range): BP systolic 116–125; BP diastolic 78–86; PULSE 106–120; RESP 18–19; TEMP 36.8–37.8; O2SAT 90–95
[2020-02-04] MEDS: ketorolac 30 mg/mL INJ 15 MG IVP ×2 (00:40→06:20)
[2020-02-04] MEDS: piperacillin-tazobactam 3.375 GM in sodium chloride 0.9% (plus) 50 ML IV ×2 (02:09→10:42)
[2020-02-04 05:50] LABS: Basophils % 0.3 %; Eosinophils # 0.1 10^3/uL (0.0-0.8); Eosinophils % 2.2 %; Hemoglobin 8.8 g/dL (11.5-15.3); Lymphocytes # 0.8 10^3/uL (0.8-4.8); Lymphocytes % 13.6 %; Mean Corpuscular HGB Conc 31.4 g/dL (30.0-36.0); Mean Corpuscular Hemoglobin 28.3 pg (28.0-34.0); Mean Platelet Volume 10.7 fL (7.4-10.4); Monocytes # 0.5 10^3/uL (0.2-0.9); Monocytes % 8.6 %; Neutrophils # 4.35 10^3/uL (1.8-7.7); Neutrophils % 74.8 %; Nucleated Red Blood Cells % 0 %; Platelet Count 184 10^3/cmm (130-400); Red Blood Count 3.11 10^6/uL (4.1-5.3); Red Cell Distribution Width 13.4 % (12.1-15.1); White Blood Count 5.8 10^3/uL (4.0-10.0)
[2020-02-04 06:11] LABS: Anion Gap 10.3 (5-19); Blood Urea Nitrogen 4 mg/dL (6-20); Calcium 8.4 mg/dL (8.5-10.5); Carbon Dioxide 27 mmol/L (22-29); Chloride 103 mmol/L (98-107); Glucose 99 mg/dL (65-115); Osmolality Calculated 279 mOsm/kg (285-295); Potassium 4.3 mmol/L (3.5-5.1); Sodium 136 mmol/L (136-145)
[2020-02-04] MEDS: famotidine 20 mg/2 mL INJ IVP (06:19)
[2020-02-04] MEDS: dextrose 5%-ns 0.45% + KCl 40 1,000 ML 100 MEQ IV (06:19)
[2020-02-04 06:26] LABS: Slide Review Slide Review Perform
--- NOTE | 2020-02-04 09:37 | PC.CHAP ---
Pastoral Care Encounter/Spiritual Assessment Type of Contact [] Declined document control assistant visit [] Patient/Family/Request visit [] Outpatient visit [] Follow-up visit [] Physician referral [] Code/Alert [] Routine visit [] Staff referral [] Actively dying [] Patient sleeping [] Family support [] [] Out of room [] Palliative care [] [] Receiving care in room [] Pre-surgical visit [] Trauma [] Long length of stay [] ICU visit [] Other: Relational/Emotional Strength [] Patient feels connected with others/family/visitors/staff [] Distress [] Loneliness/isolation [] Abandonment Spirituality of Patient [] Person of Rocio [] Attends Denominational of their [place] [] Believes in Prayer [] Reads Bible or Episcopal materials [] There are Spiritual issues to be addressed Clinical Project Assistant Interventions [x] Prayer [] Active listening [] Non-anxious presence [] Spiritual/emotional support [] Crisis/trauma care [] Spiritual counseling [] Bereavement support [] Provided bereavement packet [] Provided Bible/devotional materials [] Provided toy/stuffed animal, coloring book to patient or family member [] Provided Communion [] Anointing/[place] [] Salvation [x] Completed spiritual assessment [] Other: Impact on Illness or Injury [] Angry [] Fearful [] Anxious [] Often cries [] Exhaustion [] Unable to work [] Unable to attend jewish [] Unable to walk/stand [] Unable to read [] Unable to drive [] Unable to eat/drink [] Unable to sleep [] Unable to be with family [] Patient intubated [] Other: Summary Time spent with patient
[2020-02-04] MEDS: HYDROcodone-acetaminophen 5-325 mg Tablet PO (10:16)
--- NOTE | 2020-02-04 11:48 | P.DS_ITS ---
Discharge Providers Date of Admission: 02/03/20 09:49 Date of Discharge: February 04, 2020 Attending Provider at Admission: Rodney Cadet MD Attending Provider at Discharge: Rodney Cadet MD Primary Care Provider: [facility] Diagnoses at Discharge Discharge Diagnosis (1) Nausea vomiting and diarrhea: Status: Acute Reason for Visit Reason for Visit: POST OP COMPLICATIONS Hospital Course Hospital Course This is a 29-year-old white female who underwent a laparoscopic appendectomy for locally perforated appendicitis last week. I had tried to talk her into staying in the hospital for several days of intravenous antibiotics but she was adamant about going home. She went home on the first postoperative day but developed problems with nausea, vomiting and diarrhea. In addition, she had pulled a muscle on the right side of her back while she was vomiting. She came back to the hospital and was admitted for hydration, potassium replacement, and further antibiotics. Her white blood cell count remained normal the entire time she was in the hospital but she did run a low-grade fever on 1 occasion. Her diarrhea resolved, her back pain resolved, and her nausea and vomiting also resolved; by the day of discharge she was tolerating on a soft diet. She already has an appointment to follow-up with me in the office as an outpatient. She will continue her Augmentin as an outpatient. Physical Exam Narrative: EXAM NARRATIVE: On the day of discharge, the patient's abdomen was soft and has the expected amount of tenderness. Bowel sounds were present. All of the incisions are healing well. Discharge Data Data Completed and Pending: Labs from last 24 hours 02/04/20 02/04/20 04:26 04:26 WBC 5.8 RBC 3.11 L Hgb 8.8 L Hct 28.0 L MCV 90.0 MCH 28.3 MCHC 31.4 RDW 13.4 Plt Count 184 MPV 10.7 H Neut % (Auto) 74.8 Lymph % (Auto) 13.6 [place] % (Auto) 8.6 Eos % (Auto) 2.2 Baso % (Auto) 0.3 Neut # (Auto) 4.35 Lymph # (Auto) 0.8 [place] # (Auto) 0.5 Eos # (Auto) 0.1 Baso # (Auto) 0.0 Nucleated RBC % (a uto) 0 Nucleated RBCs # 0.0 Sodium 136 Potassium 4.3 Chloride 103 Carbon Dioxide 27 Anion Gap 10.3 BUN 4 L Creatinine 0.5 GFR Calculation 148.0 H Glucose 99 Calculated Osmolal ity 279 L Calcium 8.4 L Vitals: Last Vital Signs Temp 99.0 F 02/04/20 10:29 Pulse 116 H 02/04/20 07:14 Resp 18 02/04/20 07:14 BP 116/78 02/04/20 07:14 Pulse Ox 93 02/04/20 07:14 Discharge Plan Discharge Patient Disposition: Home Condition: Stable Prescriptions: Continued hydrocodone-acetaminophen 5-325 mg tablet 1 - 2 tab PO Q5H PRN (Reason: pain) Qty: 30 RF: 0 amoxicillin-pot clavulanate [Augmentin] 875-125 mg tablet 1 tab PO BID Qty: 15 RF: 0 Discontinued acetaminophen [Tylenol Extra Strength] 500 mg Tablet 1,000 mg PO PRN RF: 0 Discharge Orders: Discharge Order (Routine); Ordered 02/04/20 Ordered By: Rodney Cadet Discharge Diet: Advance as tolerated Discharge Activity: Limit activity as instructed Activity Restrictions/Additional Instructions: Follow up with Dr. Cadet as arranged. No lifting over 20 pounds, no repetitive bending or twisting, no strenuous pushing / pulling or other heavy activity. Ambulate regularly. May go up and down steps if needed. Discharge Attestations Time Spent in Discharge Care*: less than 30 min Quality Metrics Clinical Quality Measures During this hospital stay, did patient experience: None Coding Level of Care Code Acute Supervisor Cell Efficiency for [facility] Fwd Diagnoses Nausea vomiting and diarrhea R11.2; R19.7
--- NOTE | 2020-02-04 13:18 | PC.NURSE ---
D/C'd 2 IV's. Tip intact. Site unremarkable. Pt tolerated well. Discharge instructions given. Pt denies questions or concerns at this time. Pt taken out to via WC. Pt denies pain or needs.
== END 2020-02-04 13:24 | disposition home or self-care (01) | DRG 392 ==
PROVIDERS: Admitting Provider Surgery; Visit Provider Surgery
DX: K91.0 Vomiting following gastrointestinal surgery (principal); R19.7 Diarrhea, unspecified
CPT/HCPCS: 12345; 36415; 80048; 85025; 96375; G0378; G0379; J1885; J2270; J2405; J2543; J3480; J3490

== ENCOUNTER → 2021-08-25 09:53 | Outpatient (BNVA) | payer SELFPAY | PROVIDERS: PCP Family Medicine; Visit Provider Dermatology | DX: Z01.89 Encounter for other specified special examinations (principal) ==